=== PATIENT | female | born 1985 | race Caucasian/White ===

== ENCOUNTER 2018-07-04 20:14 | Emergency (ER) | payer SELFPAY ==
[~2018-07-04] VITALS: Ht 177.8 cm; Wt 94.5 kg
[2018-07-04 20:36] VITALS: BP 140/90
[2018-07-04] MEDS ORDERED: CEPHALEXIN 500 MG CAPSULE ONE (20:41)
[2018-07-04] MEDS ORDERED: SULFAMETH./TRIMETHOPRIM DS 800MG/160MG TABLET ONE (20:41)
[2018-07-04] MEDS ORDERED: SULFAMETH./TRIMETHOPRIM DS 800MG/160MG TABLET PO ONE (21:00)
[2018-07-04] MEDS ORDERED: CEPHALEXIN 500 MG CAPSULE PO ONE (21:00)
== END 2018-07-04 21:29 | disposition home or self-care (01) ==
LOC: ED 21:23
DX: L03.114 Cellulitis of left upper limb (principal); F11.10 Opioid abuse, uncomplicated; F41.9 Anxiety disorder, unspecified; F19.14 Other psychoactive substance abuse with psychoactive substance-induced mood disorder; F15.10 Other stimulant abuse, uncomplicated
CPT/HCPCS: 99283